=== PATIENT | female | born 1965 | race Caucasian/White ===

== ENCOUNTER 2020-03-12 17:27 | Inpatient (IN) | payer MEDICAID ==
[~2020-03-12] VITALS: Ht 157.5 cm; Wt 38.0 kg
[2020-03-12 18:16] LABS: BASOPHILS 0.2 % (0-2); EOSINOPHILS 0 % (0-7); HEMATOCRIT 29.8 % (36.0-48.0); HEMOGLOBIN 9.2 g/dL (12-16); IMMATURE GRANULOCYTES 2.1 % (0-5); LYMPHOCYTES 5.7 % (15-50); MCH 29.5 pg (26.0-34.0); MCHC 30.9 g/dL (31.0-37.0); MCV 95.5 fL (80.0-100.0); MEAN PLATELET VOLUME 9.4 fL (7.4-10.4); MONOCYTES 1.5 % (2-11); NEUTROPHILS 90.5 % (40-80); PLATELET COUNT 363 10x3/uL (130-400); RBC 3.12 10x6/uL (4.00-5.40); RDW 15.2 % (11.5-14.5); WBC 11.7 10x3/uL (4.8-10.8)
[2020-03-12 18:43] LABS: ALBUMIN 2.3 g/dL (3.4-5.0); BILIRUBIN - TOTAL 0.3 mg/dL (0.2-1.3); CALCIUM 7.3 mg/dL (8.5-10.1); CREATININE - SERUM 9.3 mg/dL (0.6-1.3); PROTEIN - SERUM 6.9 g/dL (6.4-8.2)
[2020-03-12 18:45] LABS: ANION GAP 27.2 mmol/L (8-16)
[2020-03-12 18:53] LABS: POTASSIUM - SERUM 6.2 mmol/L (3.5-5.1)
--- NOTE | 2020-03-12 18:59 | NUR ---
BS REPORT TO DAVE BOJORQUEZ
[2020-03-12 19:45] VITALS: BP 110/51
[2020-03-12 20:30] VITALS: BP 123/50
[2020-03-12 21:27] VITALS: BP 114/57
[2020-03-12 22:00] VITALS: BP 150/54
--- NOTE | 2020-03-12 22:46 | NUR ---
DARRYL CALLED TO DR SCHULTZ. KEVIN FOR TELEMETRY BED ON FLOOR NOW
[2020-03-12 23:20] VITALS: BP 128/52
[2020-03-12 23:30] LABS: % SATURATION 9 % (15-55); IRON 18 ug/dl (35-150); TOTAL IRON BIND CAPACITY 188 ug/dl (260-445); UNSAT IRON BIND CAPACITY 170 ug/dl (150-375)
[2020-03-13 00:12] VITALS: BP 108/47
--- NOTE | 2020-03-13 00:30 | NUR ---
RECEVIED PT FROM ER VIA STREATCHER BROUGHT BY HOSPITAL BED. NO SIGNS OF DISTRESS NOTED. RESPIRATIONS EVEN AND UNLABORED PT TOLERATED TRANSFER WELL. CALL LIGHT AND OTHER PERSONAL ITEMS WITH IN REACH. WILL CONTINUE TO MONITOR
[2020-03-13 04:34] VITALS: BP 91/41
[2020-03-13 06:41] LABS: INR 1.33 (0.85-1.17); PROTIME 16.4 SECONDS (11.6-15.0)
--- NOTE | 2020-03-13 08:00 | NUR ---
PT SITTING UP IN BED. RR EVEN AND UNLABORED ON RA. DENIES NEEDS OR PAIN AT THIS TIME. CALL LIGHT WITHIN REACH. BED IN LOWEST POSITION. WILL CONTINUE TO MONITOR.
[2020-03-13 09:00] VITALS: BP 94/46
--- NOTE | 2020-03-13 09:00 | NUR ---
LAB RESULTS CALLED TO JOSHUA, RENAL DENSITY CONTROL PUNCHER
[2020-03-13 09:56] LABS: COMPLEMENT C4 36.3 mg/dL (17.4-52.2)
[2020-03-13 10:04] LABS: ALBUMIN 1.8 g/dL (3.4-5.0); BILIRUBIN - TOTAL 0.39 mg/dL (0.2-1.3); CHOL - HDL RATIO 2.5 ratio (2.3-4.1); CREATININE - SERUM 9.3 mg/dL (0.6-1.3); LDL-HDL RATIO 1.1 ratio (1.5-3.5); MAGNESIUM - SERUM 1.9 mg/dL (1.8-2.4); PROTEIN - SERUM 5.4 g/dL (6.4-8.2)
[2020-03-13 10:34] LABS: ANION GAP 18.7 mmol/L (8-16); PHOSPHOROUS 9.8 mg/dL (2.5-4.9); POTASSIUM - SERUM 3.7 mmol/L (3.5-5.1)
[2020-03-13 10:36] LABS: CALCIUM 6.4 mg/dL (8.5-10.1)
[2020-03-13 11:00] VITALS: BP 92/45
[2020-03-13 11:02] LABS: ERYTHROCYTE SEDIMENTATION RATE 127 mm/hr (0-30)
[2020-03-13 11:05] LABS: BASOPHILS 0.3 % (0-2); EOSINOPHILS 0.2 % (0-7); HEMATOCRIT 20.7 % (36.0-48.0); IMMATURE GRANULOCYTES 2.8 % (0-5); LYMPHOCYTES 15.1 % (15-50); MCH 29.9 pg (26.0-34.0); MCHC 33.3 g/dL (31.0-37.0); MEAN PLATELET VOLUME 9.7 fL (7.4-10.4); MONOCYTES 5.5 % (2-11); NEUTROPHILS 76.1 % (40-80); PLATELET COUNT 327 10x3/uL (130-400); RDW 14.5 % (11.5-14.5)
[2020-03-13 11:23] LABS: RBC 2.31 10x6/uL (4.00-5.40); WBC 5.8 10x3/uL (4.8-10.8)
[2020-03-13 11:24] LABS: HEMOGLOBIN 6.9 g/dL (12-16); MCV 89.6 fL (80.0-100.0)
[2020-03-13 13:07] VITALS: Ht 157.5 cm; Wt 38.0 kg
[2020-03-13 13:08] LABS: UDS - AMPHET NEGATIVE QUAL (NEGATIVE); UDS - BARB NEGATIVE QUAL (NEGATIVE); UDS - BENZO NEGATIVE QUAL (NEGATIVE); UDS - COCAINE NEGATIVE QUAL (NEGATIVE); UDS - OPIATE NEGATIVE QUAL (NEGATIVE); UDS - PCP NEGATIVE QUAL (NEGATIVE); UDS - THC NEGATIVE QUAL (NEGATIVE)
[2020-03-13 14:21] LABS: BILIRUBIN NEGATIVE (NEGATIVE); GLUCOSE 50 mg/dL (NEGATIVE); KETONE NEGATIVE (NEGATIVE); NITRITE NEGATIVE (NEGATIVE); UROBILINOGEN NORMAL (NORMAL)
[2020-03-13 14:22] LABS: BACTERIA FEW /hpf (NEGATIVE); EPITHELIAL CELLS 0-5 /hpf (0-5); RED CELLS - URINE OCC /hpf (0-5)
--- NOTE | 2020-03-13 15:30 | NUR ---
PT BACK FROM SURGERY. HEMOSPLIT TO RIGHT CHEST. PT IS AWAKE AND STABLE AT THIS TIME. BP 84/34, ALL OTHER VITALS ARE STABLE. PT SISTER STATES SHE HAS ALWAYS RAN LOW. DENIES NEEDS OR PAIN. NO SIGN OF BLEEDING OR SWELLING NOTED. 1600- BP 101/76
[2020-03-13 18:08] LABS: BASOPHILS 0.2 % (0-2); EOSINOPHILS 0 % (0-7); HEMATOCRIT 21.2 % (36.0-48.0); IMMATURE GRANULOCYTES 1.4 % (0-5); LYMPHOCYTES 2.9 % (15-50); MCH 29.5 pg (26.0-34.0); MCV 89.5 fL (80.0-100.0); MEAN PLATELET VOLUME 9.3 fL (7.4-10.4); MONOCYTES 1.8 % (2-11); NEUTROPHILS 93.7 % (40-80); PLATELET COUNT 292 10x3/uL (130-400); RBC 2.37 10x6/uL (4.00-5.40); RDW 14.6 % (11.5-14.5)
[2020-03-13 18:14] LABS: WBC 9.3 10x3/uL (4.8-10.8)
[2020-03-13 18:57] LABS: CREATININE - SERUM 9.1 mg/dL (0.6-1.3); POTASSIUM - SERUM 3.6 mmol/L (3.5-5.1)
--- NOTE | 2020-03-13 18:58 | NUR ---
RESTS IN BED WITH EYES CLOSED. CALL LIGHT IN REACH. WILL CONT. PLAN OF CARE.
[2020-03-13 19:03] LABS: ANION GAP 12.5 mmol/L (8-16); CALCIUM 6.6 mg/dL (8.5-10.1); CARBON DIOXIDE 29.1 mmol/L (21.0-32.0)
--- NOTE | 2020-03-13 19:53 | NUR ---
PT LYING IN BED RESTING WITH EYES CLOSED. WILL AWAKEN WHEN NAME IS CALLED BUT GOES BACK TO SLEEP. PT SISTER LINSEY IS AT BEDSIDE. NO SIGNS OR SYMPTOMS OF DISTRESS NOTED. CALL LIGHT AND OTHER PERSONAL ITEMS WITH IN REACH. BED IS IN IT LOWEST POSIOTN. BED ALARM ON AND ACTIVE. WILL CONTINUE TO MONITOR
[2020-03-13 20:00] VITALS: BP 90/52
[2020-03-14] VITALS: BP 90/46
[2020-03-14 04:00] VITALS: BP 101/53
[2020-03-14 06:33] LABS: BASOPHILS 0.1 % (0-2); EOSINOPHILS 0 % (0-7); HEMATOCRIT 22.2 % (36.0-48.0); IMMATURE GRANULOCYTES 1.4 % (0-5); LYMPHOCYTES 10.5 % (15-50); MCH 29.9 pg (26.0-34.0); MCHC 32.9 g/dL (31.0-37.0); MEAN PLATELET VOLUME 9.9 fL (7.4-10.4); MONOCYTES 2.9 % (2-11); NEUTROPHILS 85.1 % (40-80); PLATELET COUNT 312 10x3/uL (130-400); RBC 2.44 10x6/uL (4.00-5.40); RDW 14.4 % (11.5-14.5); WBC 8.4 10x3/uL (4.8-10.8)
[2020-03-14 06:34] LABS: HEMOGLOBIN 7.3 g/dL (12-16)
[2020-03-14 06:53] LABS: ALBUMIN 1.8 g/dL (3.4-5.0); ANION GAP 15.2 mmol/L (8-16); BILIRUBIN - TOTAL 0.29 mg/dL (0.2-1.3); CARBON DIOXIDE 27.9 mmol/L (21.0-32.0); CREATININE - SERUM 9.5 mg/dL (0.6-1.3); MAGNESIUM - SERUM 1.9 mg/dL (1.8-2.4); POTASSIUM - SERUM 4.1 mmol/L (3.5-5.1); PROTEIN - SERUM 6.2 g/dL (6.4-8.2)
[2020-03-14 07:03] LABS: CALCIUM 6.8 mg/dL (8.5-10.1); PHOSPHOROUS 10.5 mg/dL (2.5-4.9)
[2020-03-14 09:00] VITALS: BP 92/48
[2020-03-14 09:12] LABS: HEPATITIS C ANTIBODY 0.2 S/CO RAT (0.0-0.9)
[2020-03-14 11:00] VITALS: BP 115/61
--- NOTE | 2020-03-14 11:15 | NUR ---
BLOOD INFUSION INITIATED BY DAVE MEDELLIN. PT IS ALERT AND STABLE AT THIS TIME. VS ARE BEING DOCUMENTED (SEE CHART). ASSISTED WITH TAKING MEDICATIONS AND PLACED THEM IN FOOD. WILL CONTINUE TO MONITOR.
[2020-03-14 14:10] LABS: ANA REFLEX - DIRECT Negative (Negative)
[2020-03-14 15:00] VITALS: BP 105/54
--- NOTE | 2020-03-14 17:51 | NUR ---
I have reviewed this patient and I concur with the Shift Assessment completed by the Licensed Practical Nurse today this shift.
--- NOTE | 2020-03-14 19:50 | NUR ---
PATIENT IS RESTING COMFORTABLY IN BED SHE IS RECEIVING HER SECOND UNIT OF BLOOD. SHE IS ITCHING BUT NO RASH. HER SISTER IS IN THE ROOM. WE WILL CONTINUE TO MONITOR HER HGB.
[2020-03-14 21:11] VITALS: BP 111/58
[2020-03-15 00:11] LABS: HEMATOCRIT 34.7 % (36.0-48.0); HEMOGLOBIN 11.6 g/dL (12-16)
[2020-03-15 00:32] VITALS: BP 100/58
--- NOTE | 2020-03-15 04:28 | NUR ---
PATIENT IS SLEEPING IN BED. SHE IS PLEASANTLY CONFUSED. HER SISTER LEFT TO GET SOME SLEEP. SHE WILL BE BACK IN AM. WE FINISHED HER BLOOD, AND HER H AND H WENT UP NICELY. HERE NORMA SIGHT IS CLEAN, DRY AND INTACT. SHE IS RUNNING SINUS MERLY IN THE LOW 50'S ON TELEMETRY. WE WILL CONTINUE TO MONITOR HER RATE AND RHYTHM.
[2020-03-15 04:43] LABS: BASOPHILS 0.2 % (0-2); EOSINOPHILS 0 % (0-7); HEMATOCRIT 37.4 % (36.0-48.0); HEMOGLOBIN 12.3 g/dL (12-16); IMMATURE GRANULOCYTES 1.2 % (0-5); LYMPHOCYTES 8.2 % (15-50); MCH 30.2 pg (26.0-34.0); MCHC 32.9 g/dL (31.0-37.0); MCV 91.9 fL (80.0-100.0); MEAN PLATELET VOLUME 10.1 fL (7.4-10.4); MONOCYTES 5.1 % (2-11); NEUTROPHILS 85.3 % (40-80); RDW 14.7 % (11.5-14.5)
[2020-03-15 04:51] VITALS: BP 131/67
[2020-03-15 04:54] LABS: PLATELET COUNT 247 10x3/uL (130-400); RBC 4.07 10x6/uL (4.00-5.40); WBC 11.7 10x3/uL (4.8-10.8)
[2020-03-15 05:02] LABS: ALBUMIN 1.8 g/dL (3.4-5.0); ANION GAP 12.6 mmol/L (8-16); BILIRUBIN - TOTAL 0.43 mg/dL (0.2-1.3); CARBON DIOXIDE 30.9 mmol/L (21.0-32.0); CREATININE - SERUM 8.3 mg/dL (0.6-1.3); MAGNESIUM - SERUM 1.6 mg/dL (1.8-2.4); POTASSIUM - SERUM 4.5 mmol/L (3.5-5.1); PROTEIN - SERUM 6.6 g/dL (6.4-8.2)
[2020-03-15 05:23] LABS: PHOSPHOROUS 6.7 mg/dL (2.5-4.9)
[2020-03-15 05:27] LABS: CALCIUM 6.3 mg/dL (8.5-10.1)
--- NOTE | 2020-03-15 07:43 | NUR ---
ROUNDING DONE WITH PATIENT VOICING NO NEEDS. HAS HX OF DOWN SYNDROME. ON HEART MONITOR SHOWING SR, HR 60. DR SCHULTZ HERE TO SEE PATIENT. RIGHT CHEST HEMISPLIT SEE WITH DRY INTACT DRESSING. LEFT AC SEEN WITH NS INFUSING AT 5 CC/HR. RI WRIST IS SEEN WITH SALINE LOCK. BARRAZA CATH PATENT WITH CLEAR YELLOW URINE. CALL LIGHT IN USE.
[2020-03-15 09:00] VITALS: BP 111/55
[2020-03-15 11:00] VITALS: BP 110/55
[2020-03-15 12:11] LABS: PROCALCITONIN 0.85 ng/mL (0.00-0.08)
--- NOTE | 2020-03-15 13:41 | NUR ---
Nutrition Follow-up: Pt sleeping at time of visit. Family member reports appetite/PO intake are improving; states that pt likes Ensure/Boost so agreeable to trying Nepro. Diet: Renal Wt: 83# (03/14); 130# (03/12 - stated) Last BM: 03/15 Labs noted: Ca 6.3, PO4 6.7, Mg 1.6, Alb 1.8, K+ 4.5 Meds noted: Phoslo, Pepcid, electrolyte protocol -Encourage PO intake and honor food preferences within diet restrictions. -Send Nepro with dinner tonight for pt trial. -Monitor wt; noted daily wts ordered. -RD following.
[2020-03-15 15:00] VITALS: BP 121/60
[2020-03-15] MEDS ORDERED: MIDODRINE HCL5 MG PO (15:14)
[2020-03-15] MEDS ORDERED: MERREM 500 MG/500 MG IV (15:14)
[2020-03-15] MEDS ORDERED: PHOSLO667 MG PO (15:15)
[2020-03-15 15:40] LABS: ANION GAP 14.6 mmol/L (8-16); CARBON DIOXIDE 26.7 mmol/L (21.0-32.0); CREATININE - SERUM 8.3 mg/dL (0.6-1.3); POTASSIUM - SERUM 4.3 mmol/L (3.5-5.1)
[2020-03-15 15:49] LABS: CALCIUM 6.6 mg/dL (8.5-10.1)
[2020-03-15 17:00] LABS: AMYLASE - SERUM 1950 U/L (25-115); LIPASE 8845 U/L (73-393)
--- NOTE | 2020-03-15 17:28 | NUR ---
CLEANED UP FROM INCONT. OF STOOL. COMPLETE LINEN CHANGE DONE. FAMILY AT BEDSIDE.
--- NOTE | 2020-03-15 18:03 | MORECARE ---
CASE MANAGEMENT DISCHARGE SUMMARY PATIENT: BRET LONGORIA UNIT: [id number] ADM DATE: 03/12/20 AGE: 54 : 61 SEX: F ROOM/BED: D.2111 AUTHOR: MARCO YU PHYSICIAN: REFERRING PHYSICIAN: LD NEWTON MD DATE OF SERVICE: 03/15/20 Discharge Plan Patient Name: BRET LONGORIA [facility] [facility] 1965 Planned Disposition: Anticipated Discharge Date: Discharge Date: Expected LOS: Initial Reviewer: [email or web address] Initial Review Date: 03/13/2020 Generated: 03/15/20 7:03 pm Comments DCP- Discharge Planning Updated by [email or web address]: Silvina Sandoval on 03/15/20 4:[address] Jaqueline with [facility] transfer center, called back and is unable to complete transfer information without the patient's SS number. CM contacted [facility] with admissions for patient's SS number, address, phone number. The pulling unit operator will contact [facility] when patient's sister finds patient's SS number. CM contacted Jaqueline, with the [facility] Transfer Center requested transfer to Urology, Dr. Snyder's services. Provided required information and faxed the patient's face sheet. Provided Dr. Newton' phone number, CM contact and [facility]'s phone number. Await CB. Patient Name: BRET LONGORIA Page [phone] at 1803 All edits/amendments must be made on the electronic document DICTATION DATE: 03/15/201802 RADIO COMMUNICATIONS SUPERINTENDENT: KEVIN 03/15/201802 RPT#: [id number] DC DATE: STATUS: ADM IN [facility] [address] [place] [address] END OF REPORT
--- NOTE | 2020-03-15 18:20 | MORECARE ---
CASE MANAGEMENT DISCHARGE SUMMARY PATIENT: BRET LONGORIA UNIT: [id number] ADM DATE: 03/12/20 AGE: 54 : 61 SEX: F ROOM/BED: D.2111 AUTHOR: MARCO YU PHYSICIAN: REFERRING PHYSICIAN: LD NEWTON MD DATE OF SERVICE: 03/15/20 Discharge Plan Patient Name: BRET LONGORIA Facility: [facility]:[place] : 1965 Planned Disposition: Anticipated Discharge Date: Discharge Date: Expected LOS: Initial Reviewer: [email or web address] Initial Review Date: 03/13/2020 Generated: 03/15/20 7:19 pm Comments DCP- Discharge Planning Updated by [email or web address]: Silvina Sandoval on 03/15/20 5:[address] Jaqueline with [facility] transfer center, called back and is unable to complete transfer information without the patient's SS number. Patient's sister states it will take her a while to find patient's SS number. Sister, Keon Longoria, . Request that patient's sister locate the SS number, bring it to the community health program coordinator, then the community health program coordinator will contact [facility] in order to complete the transfer information. CM contacted Carli with admissions for patient's SS number, address, phone number. The community health program coordinator will contact [facility] when patient's sister finds patient's SS number. CM contacted Jaqueline, with the [facility] Transfer Center requested transfer to Urology, Dr. Snyder's services. Provided required information and faxed the patient's face sheet. Provided Dr. Newton' phone number, CM contact and [facility]'s phone number. Await CB. Last DP export: 03/15/20 5:03 p Patient Name: BRET LONGORIA Page [phone] at 1820 All edits/amendments must be made on the electronic document DICTATION DATE: 03/15/201819 TYPE SOLDERING MACHINE TENDER: KEVIN 03/15/201819 RPT#: [id number] DC DATE: STATUS: ADM IN [facility] [address] [place] [address] END OF REPORT
--- NOTE | 2020-03-15 18:27 | MORECARE ---
CASE MANAGEMENT DISCHARGE SUMMARY PATIENT: BRET LONGORIA UNIT: [id number] ADM DATE: 03/12/20 AGE: 54 : 61 SEX: F ROOM/BED: D.[facility] AUTHOR: MARCO YU PHYSICIAN: REFERRING PHYSICIAN: LD NEWTON MD DATE OF SERVICE: 03/15/20 Discharge Plan Patient Name: BRET LONGORIA Facility: [facility]:[place] : 1965 Planned Disposition: Anticipated Discharge Date: Discharge Date: Expected LOS: Initial Reviewer: [email or web address] Initial Review Date: 03/13/2020 Generated: 03/15/20 7:26 pm Comments DCP- Discharge Planning Updated by [email or web address]: Silvina Sandoval on 03/15/20 5:[address] Jaqueline with [facility] transfer center, called back and is unable to complete transfer information without the patient's SS number. Patient's sister states it will take her a while to find patient's SS number. Sister, Keon Longoria, . Request that patient's sister locate the SS number, bring it to the community health planning director, then the community health planning director will contact [facility] in order to complete the transfer information. Patient lives with her sister, Keon Longoria @[address] [address]. CM contacted Carli with admissions for patient's SS number, address, phone number. The community health planning director will contact [facility] when patient's sister finds patient's SS number. CM contacted Jaqueline, with the [facility] Transfer Center requested transfer to Urology, Dr. Snyder's services. Provided required information and faxed the patient's face sheet. Provided Dr. Newton' phone number, CM contact and [facility]'s phone number. Await CB. Last DP export: 03/15/20 5:20 p Patient Name: BRET LONGORIA Page [phone] at 1827 All edits/amendments must be made on the electronic document DICTATION DATE: 03/15/201825 COMMODITY MERCHANT: KEVIN 03/15/201825 RPT#: [id number] DC DATE: STATUS: ADM IN [facility] [address] [place] [address] END OF REPORT
[2020-03-15 18:30] LABS: ANCA - ANTIMYELOPEROXIDASE <9.0 U/mL (0.0-9.0); ANCA - ANTIPROTEINASE 3 <3.5 U/mL (0.0-3.5); ANCA - ATYPICAL <1:20 titer (Neg:<1:20); ANCA - CYTOPLASMIC <1:20 titer (Neg:<1:20); ANCA - PERINUCLEAR <1:20 titer (Neg:<1:20)
[2020-03-15 20:00] VITALS: BP 193/81
--- NOTE | 2020-03-15 21:50 | NUR ---
CALLED REPORT TO [facility]. THIS NURSES NAME AND NUMBER TAKEN AND WAS TOLD THAT THE NURSE WAS COUGHT UP IN ANOTHER PT ROOM AND THAT SHE WOULD CALL BACK FOR REPORT.
--- NOTE | 2020-03-15 22:28 | NUR ---
REPORT CALLED TO DAVE WHITFIELD ON F6. [facility] CALLED.
--- NOTE | 2020-03-16 02:09 | NUR ---
[facility] ARRIVED TO TRANSFER PT TO [facility]. REPORT WAS GIVEN TO RADHA HEAD WELL PULLER. RIGHT WRIST IV DC'D. PT PACKET AND ALL FORMS SIGNED AND SENT WITH EMS. PT VITALS STABLE AT THIS TIME. PT SISTER LOYDA LONGORIA NOTIFIED AND CONSENTED TO TRANSFER VIA PHONE BY DAVE Yang AND THIS NURSE. PT ALERT WITH NO S/S OF DISTRESS.
--- NOTE | 2020-03-16 05:58 | NUR ---
1929-[facility] CALLED A ROOM F-[id number]. 2299-SISTER LOYDA LONGORIA CALLED FOR PERMISSION TO TRANSFER PT THIS PM. SISTER STATES SHE WAS UNAWARE THAT PT WOULD BE TRANFERED TONIGHT. PT SISTER STATES, THAT DR'S WOULD WAIT A COUPLE OF DAYS UNTIL PT STABLE AND THAT SHE DIDN'T LIKE THAT [facility] WOULDN'T ALLOW HER TO VISIT. CALL PUT OUT TO CHRISTIAN JORGE. ANIA ASKED IF THIS NURSE COULD SEE IF [facility] WOULD HOLD BED UNTIL SITUATION WAS RESOLVED IN AM. [facility] CLEANING PROFESSIONAL STATES THEY CAN NOT HOLD BED. ANIA CALLED SISTER AND THIS NURSE WAS ABLE TO OBTAIN PERMISSION FOR TRANSFER,.
--- NOTE | 2020-03-16 09:32 | MORECARE ---
CASE MANAGEMENT DISCHARGE SUMMARY PATIENT: BRET LONGORIA UNIT: [id number] ADM DATE: 03/12/20 AGE: 54 : 61 SEX: F ROOM/BED: D.[facility] AUTHOR: MARCO YU PHYSICIAN: REFERRING PHYSICIAN: LD NEWTON MD DATE OF SERVICE: 03/16/20 Discharge Plan Patient Name: BRET LONGORIA Facility: [facility]:[place] : 1965 Planned Disposition: Anticipated Discharge Date: Discharge Date: 03/16/2020 Expected LOS: Initial Reviewer: [id number] Initial Review Date: 03/13/2020 Generated: 03/16/20 10:32 am Comments DCP- Discharge Planning Updated by [email or web address]: Silvina Sandoval on 03/15/20 5:[address] Jaqueline with [facility] transfer center, called back and is unable to complete transfer information without the patient's SS number. Patient's sister states it will take her a while to find patient's SS number. Sister, Keon Longoria, . Request that patient's sister locate the SS number, bring it to the unit leader, then the unit leader will contact [facility] in order to complete the transfer information. Patient lives with her sister, Keon Longoria @[address] [place] [phone]. CM contacted Carli with admissions for patient's SS number, address, phone number. The unit leader will contact [facility] when patient's sister finds patient's SS number. CM contacted Jaqueline, with the [facility] Transfer Center requested transfer to Urology, Dr. Snyder's services. Provided required information and faxed the patient's face sheet. Provided Dr. Newton' phone number, CM contact and [facility]'s phone number. Await CB. Last DP export: 03/15/20 5:27 p Patient Name: BRET LONGORIA Page [phone] at 0932 All edits/amendments must be made on the electronic document DICTATION DATE: 03/16/20931 REPACK ROOM WORKER: KEVIN 03/16/20931 RPT#: [id number] DC DATE:03/16/20 STATUS: DIS [facility] [address] [address] END OF REPORT
== END 2020-03-16 04:56 | disposition home or self-care (01) | DRG 682 ==
LOC: D.ER 17:27 → D.M2 21:07
PROVIDERS: Family Medicine; Internal Medicine Nephrology; Surgery; ADMIT Family Medicine; ATTEND Family Medicine
PROC: B5131ZA Fluoroscopy of Right Jugular Veins using Low Osmolar Contrast, Guidance (ICD-10-PCS; 2020-03-13)
PROC: 05HM33Z Insertion of Infusion Device into Right Internal Jugular Vein, Percutaneous Approach (ICD-10-PCS; principal; 2020-03-13 12:30)
DX: N17.0 Acute kidney failure with tubular necrosis (principal); K85.90 Acute pancreatitis without necrosis or infection, unspecified; N39.0 Urinary tract infection, site not specified; F05 Delirium due to known physiological condition; E87.5 Hyperkalemia; Q90.9 Down syndrome, unspecified; F03.90 Unspecified dementia, unspecified severity, without behavioral disturbance, psychotic disturbance, mood disturbance, and anxiety; D64.9 Anemia, unspecified; N13.30 Unspecified hydronephrosis; Z95.0 Presence of cardiac pacemaker